=== PATIENT | female | born 1990 ===

== ENCOUNTER 2024-02-20 07:59 | Outpatient (CLI) | payer OTHER, SELFPAY ==
--- NOTE | ~2024-02-20 | MR_ITS ---
EXAMINATION: MR abdomen wo/w con DATE: 02/20/2024 08:58 INDICATION: Hypoglycemia TECHNIQUE: Magnetic resonance imaging (MRI) of the abdomen was performed without and with 20 mL Multi brian intravenous contrast. Sequences included coronal T2-weighted SS-FSE, coronal and axial FS 2D-F IESTA, axial STIR FSE, axial T2-weighted SS-FSE, axial T2-weighted FS SS-FSE, axial diffusion-weighte d SE, axial dual-echo T1-weighted FSPGR, and axial and coronal T1-weighted LAVA. Postcontrast axial T 1-weighted LAVA images were obtained in a time course. Postcontrast coronal T1-weighted LAVA images w ere obtained. COMPARISON: None. FINDINGS: Heart size is normal. No pericardial or pleural effusion. Liver, gallbladder, spleen, pancreas, bilat eral adrenal glands and kidneys are normal. Visualized portion of the bowels are normal. No pathologi naheed enlarged abdominal lymphadenopathy. T1 hyperintense fat saturating hemangiomas at T10. IMPRESSION: 1. Unremarkable abdomen MRI. Reviewed, dictated and finalized at location A.
== END 2024-02-20 08:00 ==
LOC: MICIMG 08:01
PROVIDERS: PCP Nurse Practitioner; Visit Provider Nurse Practitioner
DX: E16.2 Hypoglycemia, unspecified (principal); R94.7 Abnormal results of other endocrine function studies; R53.83 Other fatigue; E88.818 Other insulin resistance
CPT/HCPCS: 74183; A9577